=== PATIENT | male | born 1985 | race Caucasian/White ===

== ENCOUNTER → 2022-01-19 | Outpatient (CLI) | payer BC ==
--- NOTE | 2022-01-19 10:30 | US ---
EXAMINATION TYPE: US thyroid st tissue head/neck DATE OF EXAM: 01/19/2022 COMPARISON: NONE CLINICAL HISTORY: E04.0 NONTOXIC DIFFUSE GOITER. Difficulty swallowing GLAND SIZE: Right Lobe: 5.5 x 1.5 x 2.2 cm Overall Parenchyma: homogenous Left Lobe: 4.9 x 1.5 x 1.6 cm Overall Parenchyma: homogeneous Isthmus Thickness: 0.3 cm NODULES RIGHT: # of nodules measured on right: 1 1. 0.5 X 0.4 x 0.5 cm, upper lateral, solid or almost completely solid, hypoechoic nodule, which is wider than tall, with smooth margins, without echogenic foci. TR 4. Prior size: no previous LEFT: # of nodules measured on left: 1 1. 0.9 X 0.5 x 0.7 cm, mid/lower mid, mixed cystic and solid, hypoechoic nodule, which is wider talib n tall, with smooth margins, without echogenic foci. Prior size: no previous ISTHMUS: # of nodules measured in the isthmus: 0 Bilateral neck scanned, no evidence of lymphadenopathy. IMPRESSION: Moderately suspicious nodule right lobe thyroid. Consider follow-up exam in one year 2017 ACR TI-RADS LEVEL: TR-RADS 4 - Moderately Suspicious: Follow if > 1 cm, FNA if > 1.5 cm *Highest TI-RADS level nodule reported
== END | disposition home or self-care (01) ==
LOC: RADUSWWP 09:22
PROVIDERS: ATTEND Family Medicine
DX: E04.0 Nontoxic diffuse goiter (principal); R13.10 Dysphagia, unspecified
CPT/HCPCS: 76536

== ENCOUNTER → 2023-10-05 | Outpatient (CLI) | payer BC ==
--- NOTE | 2023-10-05 12:29 | FL ---
EXAMINATION TYPE: FL barium swallow DATE OF EXAM: 10/05/2023 CLINICAL HISTORY: Dysphasia TECHNIQUE: A double contrast esophagram is performed utilizing air and barium. A total of 41 second s of fluoroscopic time was utilized during procedure and 19 images obtained. Total dose area product (DAP) in uGy*m?, mGy*cm? (or similar) 5.. COMPARISON: None FINDINGS: The esophagus shows normal motility and emptying into the stomach. There was a small hiatal hernia and tertiary contractions of the esophagus mild fold thickening. There was evidence of gastro esophageal reflux. IMPRESSION: 1. Small hiatal hernia with gastroesophageal reflux. Mild fold thickening in tertiary contractions of the esophagus correlate for reflux esophagitis. Consider EGD for further evaluation.
== END | disposition home or self-care (01) ==
LOC: RADFLMAIN 11:04
PROVIDERS: ATTEND Family Medicine
DX: K21.9 Gastro-esophageal reflux disease without esophagitis (principal); K44.9 Diaphragmatic hernia without obstruction or gangrene; R13.10 Dysphagia, unspecified
CPT/HCPCS: 74220

== ENCOUNTER 2024-01-08 09:07 | Day surgery (SDC) | payer BC ==
[2024-01-03 13:09] VITALS: BMI 27.4
[2024-01-08] MEDS ORDERED: LIDOCAINE 1% (10MG/ML) FOR IV START INTRADERMA PRN (09:28)
[2024-01-08] MEDS: LACTATED RINGERS 1,000 ML IV SCH (09:43)
[2024-01-08 09:48] VITALS: RESP 16; TEMP 97.9
[2024-01-08] MEDS ORDERED: PROPOFOL 10 MG/ML 20 ML VIAL IV ONE (10:07)
[2024-01-08] MEDS ORDERED: LIDOCAINE 1% INJ 10MG/ML (20 ML MDV) ONE (10:07)
--- NOTE | 2024-01-08 10:18 | P.GSHP ---
History of Present Illness H&P Date: 01/08/24 Chief Complaint: GERD 38-year-old male here for upper endoscopy. Patient has had a 1 year history of intermittent dysphagia and reflux. Reflux symptoms improved with omeprazole however still having dysphagia at times. Patient had a upper GI 2 months ago is showing GERD, hiatal hernia, and some tertiary contractions. Past Medical History Past Medical History: GERD/Reflux Additional Past Medical History / Comment(s): reflux trouble swallowint, lower back muscle spasms History of Any Multi-Drug Resistant Organisms: None Reported Past Surgical History: No Surgical Hx Reported Past Anesthesia/Blood Transfusion Reactions: No Reported Reaction Additional Past Anesthesia/Blood Transfusion Reaction / Comment(s): no blood transfusion Smoking Status: Current every day smoker, Vaper Medications and Allergies Home Medications Medication Instructions Recorded Confirmed Type Fexofenadine HCl [Елена Allergy] 180 mg PO DAILY 01/03/24 01/08/24 History Omeprazole 40 mg PO DAILY 01/03/24 01/08/24 History tiZANidine HCL [Zanaflex] 6 mg PO DAILY 01/03/24 01/08/24 History Allergies Allergy/AdvReac Type Severity Reaction Status Date / Time No Known Allergies Allergy Verified 01/08/24 09:33 Surgical - Exam Vital Signs Temp Pulse Resp BP Pulse Ox 97.9 F 66 16 120/76 99 01/08/24 09:34 01/08/24 09:34 01/08/24 09:34 01/08/24 09:34 01/08/24 09:34 Physical exam: General: Well-developed, well-nourished HEENT: Normocephalic, sclerae nonicteric Abdomen: Nontender, nondistended Extremities: No edema Neuro: Alert and oriented Assessment and Plan (1) GERD (gastroesophageal reflux disease) Narrative/Plan: Will proceed with upper endoscopy Current Visit: Yes Status: Acute Code(s): K21.9 - GASTRO-ESOPHAGEAL REFLUX DISEASE WITHOUT ESOPHAGITIS SNOMED Code(s): 731841622
--- NOTE | 2024-01-08 10:19 | P.PCN ---
Date of Procedure: 01/08/24 Procedure(s) Performed: Preoperative Dx: GERD, dysphagia Postoperative Dx: Gastritis, small hiatal hernia, mild distal esophagitis Procedure: EGD with Bx Anesthesia: Sedation Endoscopist: Dr. Parsons Specimens: Antrum, distal esophagus Endoscopic Procedure: The patient was on the endoscopy table in the left decubitus position. The Olympus gastroscope was inserted into the oropharynx and passed under direct visualization to the region of the third portion of the duodenum. From that point the scope was slowly withdrawn inspecting all surfaces carefully. There were no neoplastic inflammatory or polypoid lesions throughout the duodenum. The pylorus was widely patent. The stomach was carefully inspected. There was mild gastritis present. A biopsy of the antrum took place to rule out H. pylori. Retroflexion revealed a normal hiatus. As the scope was withdrawn into the esophagus a small 1 cm hiatal hernia was noted. At the GE junction there was very mild inflammatory changes. Biopsies were taken. There was a single small linear erosion measuring less than 1 cm. The remainder the esophagus appeared normal. There was no narrowing to explain the patient's dysphagia. The patient was then taken to the recovery room in stable condition per anesthesia guidelines. Recommendations: Await biopsy results. Continue antiacids.
[2024-01-08 10:47] VITALS: BP 103/68; PULSE 63
== END 2024-01-08 10:54 | disposition home or self-care (01) ==
LOC: ORWHC2ENDO 09:07
PROVIDERS: ATTEND Surgery
DX: K29.50 Unspecified chronic gastritis without bleeding (principal); K21.00 Gastro-esophageal reflux disease with esophagitis, without bleeding; K44.9 Diaphragmatic hernia without obstruction or gangrene; F41.9 Anxiety disorder, unspecified; F17.290 Nicotine dependence, other tobacco product, uncomplicated; Z79.899 Other long term (current) drug therapy
CPT/HCPCS: 88305; 43239; J2001; J2704

== ENCOUNTER → 2024-05-16 | Outpatient (CLI) | payer BC ==
--- NOTE | 2024-05-16 16:55 | US ---
EXAMINATION TYPE: US thyroid st tissue head/neck DATE OF EXAM: 05/16/2024 COMPARISON: US 01/19/2022 CLINICAL INDICATION: Male, 39 years old with history of E04.2 NONTOXIC MULTH GOLTER; Goiter TECHNIQUE: Grayscale and color Doppler imaging of the thyroid gland. FINDINGS: GLAND SIZE: Right Lobe: 5.7 x 1.9 x 1.7 cm Overall Parenchyma: homogeneous Left Lobe: 5.1 x 1.8 x 1.5 cm Overall Parenchyma: homogeneous Isthmus Thickness: 0.26 cm NODULES RIGHT: # of nodules measured on right: 1 1. 0.6 X 0.4 x 0.4 cm, upper lateral, solid or almost completely solid, hypoechoic nodule, which is as wide as it is tall, with smooth margins, without echogenic foci. Prior size: 0.5 x 0.5 x 0.4 cm LEFT: # of nodules measured on left: 1 1. 1.0 X 0.9 x 0.6 cm, lower mid, solid or almost completely solid, hypoechoic nodule, which is wid er than tall, with smooth margins, without echogenic foci. Tear for Prior size: 0.9 x 0.7 x 0.5 cm ISTHMUS: # of nodules measured in the isthmus: 0 Bilateral neck scanned, no evidence of lymphadenopathy. IMPRESSION: Moderately suspicious nodule left lobe thyroid. Follow-up in 1 year is recommended. 2017 ACR TI-RADS LEVEL: TR-RADS 4 - Moderately Suspicious: Follow if > 1 cm, FNA if > 1.5 cm *Highest TI-RADS level nodule reported [email or web address] [facility], Workstation: [email or web address], 05/16/2024 4:53 PM
== END | disposition home or self-care (01) ==
LOC: RADUSWWP 16:29
PROVIDERS: ATTEND Family Medicine
DX: E04.2 Nontoxic multinodular goiter (principal)
CPT/HCPCS: 76536

== ENCOUNTER 2024-08-15 01:53 | Observation (INO) | payer BC ==
[2024-08-15] MEDS: NITROGLYCERIN SL TABS 0.4 MG TAB SUBLINGUAL STA ×2 (02:26→03:44)
[2024-08-15] MEDS: SODIUM CHLORIDE 0.9% 1,000 ML IV STA (02:29)
--- NOTE | 2024-08-15 02:29 | ED ---
General Adult HPI - General Chief complaint: Chest Pain Stated complaint: Chest Tightness, Dizziness Source: patient Mode of arrival: EMS Limitations: no limitations - History of Present Illness Initial comments: Patient is a pleasant 39-year-old male with no significant medical history presenting today for left-sided chest discomfort. Patient was lying in bed this evening when he began to feel a tightness on the left side of his chest. He became worried due to family history of cardiac disease so called paramedics for further evaluation. Pain did radiate to the left shoulder blade and has subsequently spontaneously subsided. Did not radiate to the jaw, back or down his arm. He denies associated diaphoresis, shortness of breath, cough, hemoptysis, fevers, chills, recent illness, nausea, vomiting, dizziness, palpitations, numbness, weakness, slurred speech, abdominal pain. 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 Pt's father had a heart attack around the age of 65. No known hx sudden cardiac in family. Pt vapes but is a nonsmoker. No recent travel, surgery or hospitalizations, no hx CA, not on hormone replacement therapy, no LE swelling. Patient states that he does drink quite a bit of caffeine and stating that he drinks a 20 ounce red bull as well as another 3 red bowls throughout the day typically. - Related Data Previous Rx's Medication Instructions Recorded Aspirin 81 mg PO DAILY 30 Days #30 tab 08/16/24 Atorvastatin [Lipitor] 40 mg PO DAILY 30 Days #30 tablet 08/16/24 Dapagliflozin Propanediol [Farxiga] 10 mg PO DAILY 30 Days #30 tablet 08/16/24 Metoprolol Succinate (ER) [Toprol 25 mg PO DAILY 30 Days #30 tab 08/16/24 XL] Sacubitril/Valsartan [Entresto 24 1 each PO BID 30 Days #60 tablet 08/16/24 mg-26 mg Tablet] Allergies Allergy/AdvReac Type Severity Reaction Status Date / Time No Known Allergies Allergy Verified 08/15/24 08:26 Review of Systems ROS Statement: Those systems with pertinent positive or pertinent negative responses have been documented in the HPI. ROS Other: All systems not noted in ROS Statement are negative. Past Medical History Past Medical History: GERD/Reflux Additional Past Medical History / Comment(s): reflux trouble swallowint, lower back muscle spasms History of Any Multi-Drug Resistant Organisms: None Reported Past Surgical History: No Surgical Hx Reported Past Anesthesia/Blood Transfusion Reactions: No Reported Reaction Additional Past Anesthesia/Blood Transfusion Reaction / Comment(s): no blood transfusion Past Psychological History: Anxiety Smoking Status: Current every day smoker, Vaper Past Alcohol Use History: Occasional Past Drug Use History: Marijuana General Exam - General Exam Comments Initial Comments: PE: CONSTITUTIONAL: No apparent distress, well appearing SKIN: Warm, dry, no jaundice, hives or petechiae EYES: Pupils are equally round, extraocular movements intact without nystagmus, clear conjunctiva, non-icteric sclera HENT: Normocephalic, atraumatic, moist mucus membranes, oropharynx clear without exudates NECK: , Full range of motion, normal appearance PULMONARY: Clear to auscultation without wheezes, rhonchi, or rales, normal excursion, no accessory muscle use and no stridor CARDIOVASCULAR: Regular rate, rhythm, normal S1 and S2. No appreciated murmurs, rubs or gallops. Strong radial pulses with intact distal perfusion. No lower extremity edema, no reproducible chest wall tenderness to palpation GASTROINTESTINAL: Soft, active bowel sounds throughout, non-tender, non- distended, no palpable masses, no rebound or guarding. No hepatosplenomegaly GENITOURINARY: MUSCULOSKELETAL: Extremities have no gross deformity, no edema, redness, or swelling. No calf swelling NEUROLOGIC:_a/o x 3, GCS 15, normal mentation and speech. Moves all extremities x 4 without motor or sensory deficit PSYCHIATRIC:_normal mood and affect, thought process is clear and linear Limitations: no limitations Course Vital Signs 08/15/24 08/15/24 08/15/24 01:56 02:21 03:40 Temperature 98.6 F 98.5 F 97.9 F Pulse Rate 71 80 67 Respiratory 18 14 14 Rate Blood Pressure 142/93 138/88 125/83 O2 Sat by Pulse 98 95 98 Oximetry 08/15/24 08/15/24 08/15/24 06:59 09:00 09:48 Temperature 98.3 F Pulse Rate 64 75 66 Respiratory 14 16 16 Rate Blood Pressure 117/84 130/68 116/72 O2 Sat by Pulse 96 98 98 Oximetry 08/15/24 08/15/24 08/15/24 11:00 11:47 11:58 Temperature Pulse Rate 75 74 65 Respiratory 16 20 16 Rate Blood Pressure 110/60 116/74 136/60 O2 Sat by Pulse 98 98 98 Oximetry EKG Findings - EKG Comments: EKG Findings:: Sinus rhythm, rate 73 bpm MN interval 151 ms QRS duration 105 ms QT/QTc 347/373 ms, normal axis, questioable [address] elevation in lead V2, otherwise no ST elevations or depressions, T wave inversion lead aVR, prominent T waves in leads II, III and aVF no prior EKG for comparison Medical Decision Making - Medical Decision Making Was pt. sent in by a medical professional or institution (, PA, FIBER OPTIC TECHNICIAN, urgent care, hospital, or fpc...) When possible be specific @ -No Did you speak to anyone other than the patient for history (EMS, parent, family, police, friend...)? What history was obtained from this source @ -No Did you review nursing and triage notes (agree or disagree)? Why? @ -I reviewed and agree with nursing and triage notes Were old charts reviewed (outside hosp., previous admission, EMS record, old EKG, old radiological studies, urgent care reports/EKG's, fpc records)? Report findings @ -Medical records reviewed Differential Diagnosis (chest pain, altered mental status, abdominal pain women, abdominal pain men, vaginal bleeding, weakness, fever, dyspnea, syncope, headache, dizziness, GI bleed, back pain, seizure, CVA, palpatations, mental health, musculoskeletal)? @ -Differential Chest Pain: Stable Angina, Unstable Angina, STEMI, NSTEMI pericarditis, pleurisy, chostochondirits, Pneumothorax, Musculoskeletal, Esophageal Spasm GERD, Cholecystitis, Pancreatitis, Zoster, this is not meant to be an all-inclusive list. EKG interpreted by me (3pts min.). @ -As above X-rays interpreted by me (1pt min.). @ -None done CT interpreted by me (1pt min.). @ -None done U/S interpreted by me (1pt. min.). @ -None done What testing was considered but not performed or refused? (CT, X-rays, U/S, labs)? Why? Consider D-dimer however Wells score is 0, PERC rule negative, therefor PE can be ruled out without further investigation. What meds were considered but not given or refused? Why? @ -None Did you discuss the management of the patient with other professionals (professionals i.e. , PA, FIBER OPTIC TECHNICIAN, lab, RT, psych nurse, social sciences instructor, police clerk, teacher, soil science technical officer, case planner)? Give summary @ -No Was smoking cessation discussed for >3mins.? @ -No Was critical care preformed (if so, how long)? @ -No Were there social determinants of health that impacted care today? How? ( Homelessness, low income, unemployed, alcoholism, drug addiction, transportation, low edu. Level, literacy, decrease access to med. care, longterm, rehab)? @ -No Was there de-escalation of care discussed even if they declined (Discuss DNR or withdrawal of care, Hospice)? @ -No What co-morbidities impacted this encounter? (DM, HTN, Smoking, COPD, CAD, Cancer, CVA, ARF, Chemo, Hep., AIDS, mental health diagnosis, sleep apnea, morbid obesity)? @Nicotine dependance Was patient admitted / discharged? Hospital course, mention meds given and route, prescriptions, significant lab abnormalities, going to OR and other pertinent info. @ Admission- Patient is a pleasant 39-year-old gentleman with no significant medical history presenting today for left-sided chest tightness that began spontaneously at home this evening. Discomfort improving spontaneously. Patient seen and assessed on arrival. Complete history and physical exam performed. Plan for chest pain workup, EKG, chest x-ray aspirin will trial sublingual nitroglycerin, Tylenol was ordered out of anticipated headache status with sublingual nitro. Patient agreeable w/ POC Labs and imaging reviewed. Grossly within normal limits. Abnormal values not concerning for acute pathology related to presenting complaint. On reassessment patient states that his pain had improved however he had gotten up to use the bathroom and pain returned with ambulation. Patient was given additional sublingual nitroglycerin and Toradol with improvement of pain again. I discussed with patient his EKG, and improvement of pain with SL nitro, which is somewhat concerning for chest pain related to ACS. At this point he has a relatively low HEART score (3), however pt is concerned that his pain is cardiac in nature and feels more comfortable with admission for obs, cardiac consultation. I feel this is reasonable given pt's family hx, chest pain wors ening with ambulation and improving with SL nitro and questionable ST elevation in lead V2. Case discussed with Dr. Walker who kindly accepts patient for admission. Undiagnosed new problem with uncertain prognosis? @ -No Drug Therapy requiring intensive monitoring for toxicity (Heparin, Nitro, Insul in, Cardizem)? @ -No Were any procedures done? @ -No Diagnosis/symptom? @Chest pain Acute, or Chronic, or Acute on Chronic? acute Uncomplicated (without systemic symptoms) or Complicated (systemic symptoms)? complicated Side effects of treatment? @ -No Exacerbation, Progression, or Severe Exacerbation? @ -No Poses a threat to life or bodily function? How? (Chest pain, USA, MD, pneumonia, PE, COPD, DKA, ARF, appy, cholecystitis, CVA, Diverticulitis, Homicidal, Suicidal, threat to staff... and all critical care pts) @ Yes if 2/2 cardiac etiology, and left unaddressed could ultimately be life thr eatening - Lab Data Result diagrams: 08/16/24 03:56 08/16/24 03:56 Lab Results 08/15/24 08/15/24 08/15/24 Range/Units 01:59 01:59 01:59 WBC 11.2 H (3.8-10.6) k/uL RBC 4.85 (4.30-5.90) m/uL Hgb 15.2 (13.0-17.5) gm/dL Hct 45.7 (39.0-53.0) % MCV 94.1 (80.0-100.0) fL MCH 31.4 (25.0-35.0) pg MCHC 33.3 (31.0-37.0) g/dL RDW 12.4 (11.5-15.5) % Plt Count 303 (150-450) k/uL MPV 7.2 Neutrophils % 58 % Lymphocytes % 31 % Monocytes % 6 % Eosinophils % 3 % Basophils % 0 % Neutrophils # 6.5 (1.3-7.7) k/uL Lymphocytes # 3.4 (1.0-4.8) k/uL Monocytes # 0.6 (0-1.0) k/uL Eosinophils # 0.3 (0-0.7) k/uL Basophils # 0.1 (0-0.2) k/uL PT 11.0 (10.0-12.5) sec INR 1.0 (<1.2) APTT 23.8 (22.0-30.0) sec Sodium 139 (137-145) mmol/L Potassium 3.8 (3.5-5.1) mmol/L Chloride 103 (98-107) mmol/L Carbon Dioxide 25 (22-30) mmol/L Anion Gap 11 mmol/L BUN 10 (9-20) mg/dL Creatinine 0.82 (0.66-1.25) mg/dL Est GFR (CKD-EPI)AfAm >90 (>60 ml/min/1.73 sqM) Est GFR (CKD-EPI)NonAf >90 (>60 ml/min/1.73 sqM) Glucose 110 H (74-99) mg/dL Calcium 9.4 (8.4-10.2) mg/dL Magnesium 2.2 (1.6-2.3) mg/dL Total Bilirubin 0.6 (0.2-1.3) mg/dL AST 27 (17-59) U/L ALT 18 (4-49) U/L Alkaline Phosphatase 58 (38-126) U/L Troponin I (0.000-0.034) ng/mL NT-Pro-B Natriuret Pep <20 pg/mL Total Protein 7.7 (6.3-8.2) g/dL Albumin 4.8 (3.5-5.0) g/dL Triglycerides (0.00-149.00) mg/dL Cholesterol (0.00-200.00) mg/dL LDL Cholesterol, Calc (0.0-131.0) mg/dL VLDL Cholesterol, Calc (5.00-40.00) mg/dL HDL Cholesterol (40.00-60.00) mg/dL Cholesterol/HDL Ratio Ratio 08/15/24 08/15/24 08/15/24 Range/Units 01:59 01:59 05:17 WBC (3.8-10.6) k/uL RBC (4.30-5.90) m/uL Hgb (13.0-17.5) gm/dL Hct (39.0-53.0) % MCV (80.0-100.0) fL MCH (25.0-35.0) pg MCHC (31.0-37.0) g/dL RDW (11.5-15.5) % Plt Count (150-450) k/uL MPV Neutrophils % % Lymphocytes % % Monocytes % % Eosinophils % % Basophils % % Neutrophils # (1.3-7.7) k/uL Lymphocytes # (1.0-4.8) k/uL Monocytes # (0-1.0) k/uL Eosinophils # (0-0.7) k/uL Basophils # (0-0.2) k/uL PT (10.0-12.5) sec INR (<1.2) APTT (22.0-30.0) sec Sodium (137-145) mmol/L Potassium (3.5-5.1) mmol/L Chloride (98-107) mmol/L Carbon Dioxide (22-30) mmol/L Anion Gap mmol/L BUN (9-20) mg/dL Creatinine (0.66-1.25) mg/dL Est GFR (CKD-EPI)AfAm (>60 ml/min/1.73 sqM) Est GFR (CKD-EPI)NonAf (>60 ml/min/1.73 sqM) Glucose (74-99) mg/dL Calcium (8.4-10.2) mg/dL Magnesium (1.6-2.3) mg/dL Total Bilirubin (0.2-1.3) mg/dL AST (17-59) U/L ALT (4-49) U/L Alkaline Phosphatase (38-126) U/L Troponin I <0.012 <0.012 (0.000-0.034) ng/mL NT-Pro-B Natriuret Pep pg/mL Total Protein (6.3-8.2) g/dL Albumin (3.5-5.0) g/dL Triglycerides 335.00 H (0.00-149.00) mg/dL Cholesterol 238.00 H (0.00-200.00) mg/dL LDL Cholesterol, Calc 138.1 H (0.0-131.0) mg/dL VLDL Cholesterol, Calc 67.00 H (5.00-40.00) mg/dL HDL Cholesterol 32.90 L (40.00-60.00) mg/dL Cholesterol/HDL Ratio 7.23 Ratio Disposition Clinical Impression: Chest pain Disposition: ADMITTED IP TO THIS [facility] Condition: Stable
[2024-08-15] MEDS: ASPIRIN 81 MG PO STA (02:30)
[2024-08-15] MEDS: ACETAMINOPHEN TAB 500 MG TAB PO STA (02:31)
[2024-08-15 02:43] LABS: Basophils # (A) 0.1 k/uL (0-0.2); Basophils % (A) 0 %; Eosinophils # (A) 0.3 k/uL (0-0.7); Eosinophils % (A) 3 %; HCT 45.7 % (39.0-53.0); HGB 15.2 gm/dL (13.0-17.5); Lymphocytes # (A) 3.4 k/uL (1.0-4.8); Lymphocytes % (A) 31 %; MCH 31.4 pg (25.0-35.0); MCHC 33.3 g/dL (31.0-37.0); MCV 94.1 fL (80.0-100.0); Mean Platelet Volume 7.2; Monocytes # (A) 0.6 k/uL (0-1.0); Monocytes % (A) 6 %; Neutrophils # (A) 6.5 k/uL (1.3-7.7); Neutrophils % (A) 58 %; Platelet Count 303 k/uL (150-450); RBC 4.85 m/uL (4.30-5.90); RDW 12.4 % (11.5-15.5); WBC 11.2 k/uL (3.8-10.6)
[2024-08-15 02:44] LABS: ALT 18 U/L (4-49); AST 27 U/L (17-59); African American GFR (CKD) >90 (>60 ml/min/1.73 sqM); Albumin 4.8 g/dL (3.5-5.0); Alkaline Phosphatase 58 U/L (38-126); Anion Gap 11 mmol/L; Blood Urea Nitrogen 10 mg/dL (9-20); Calcium 9.4 mg/dL (8.4-10.2); Carbon Dioxide 25 mmol/L (22-30); Chloride 103 mmol/L (98-107); Glucose 110 mg/dL (74-99); Magnesium 2.2 mg/dL (1.6-2.3); Non-African American GFR(CKD) >90 (>60 ml/min/1.73 sqM); Potassium 3.8 mmol/L (3.5-5.1); Sodium 139 mmol/L (137-145); Total Bilirubin 0.6 mg/dL (0.2-1.3); Total Protein 7.7 g/dL (6.3-8.2)
[2024-08-15 02:50] LABS: Partial Thromboplastin Time 23.8 sec (22.0-30.0)
[2024-08-15 02:52] LABS: NT-Pro-B-Type Natriuretic Pept <20 pg/mL
[2024-08-15] MEDS: KETOROLAC 15 MG/ML 1 ML VIAL IVP STA (03:45)
[2024-08-15] MEDS ORDERED: NALOXONE 0.4 MG/ML 1 ML VIAL IV PRN (06:23)
[2024-08-15] MEDS ORDERED: traMADol 50 MG TAB PO PRN (06:23)
[2024-08-15] MEDS ORDERED: ONDANSETRON 4 MG/2 ML VIAL IVP PRN (06:23)
[2024-08-15] MEDS ORDERED: IBUPROFEN 400 MG TAB PO PRN (06:23)
[2024-08-15] MEDS ORDERED: CALCIUM CARBONATE 500 MG CHEWABLE PO PRN (06:23)
[2024-08-15] MEDS ORDERED: MAG HYDROX/AL HYDROX/SIMETH 30 ML CUP PO PRN (06:23)
[2024-08-15] MEDS ORDERED: ACETAMINOPHEN TAB 325 MG TAB PO PRN (06:23)
--- NOTE | 2024-08-15 07:37 | XR ---
EXAMINATION TYPE: XR chest 2V DATE OF EXAM: 08/15/2024 2:42 AM COMPARISON: 02/09/2017 CLINICAL INDICATION: Male, 39 years old with history of Chest Pain, TECHNIQUE: XR chest 2V view(s) obtained. FINDINGS: The heart size is normal. The pulmonary vasculature is normal. The lungs are clear. IMPRESSION: 1. No acute pulmonary process. [facility], , 08/15/2024 7:35 AM
[2024-08-15] MEDS: FAMOTIDINE 20 MG TAB PO SCH (10:00)
--- NOTE | 2024-08-15 10:03 | P.HPIM ---
History of Present Illness H&P Date: 08/15/24 Chief Complaint: Chest pain Patient is a 39-year-old male with GERD presented earlier today to the ED for left-sided chest tightness that started yesterday evening. Patient was seen at bedside. He reported that he was laying down watching TV last night when he started feeling a chest tightness sensation. He has never had anything like this before. He reported a substernal, nonradiating, intermittent chest pain with intensity of 5 out of 10. Each episode lasted few minutes. When patient presented to the ED he was given nitroglycerin which did help relieve his pain. Patient does report a family history significant for sudden cardiac , atrial fibrillation, and premature ventricular contractions. Patient also endorsed shakiness and dizziness. Denies syncope, loss of consciousness, passing out. Patient also denies fever, chills, shortness of breath, nausea, vomiting, belly pain, diarrhea/constipation, tingling/numbness in upper and lower extremity. ED documentation reviewed. In the ED patient was treated with aspirin 324 mg x 1, nitroglycerin 0.4 mg x 2, a bolus of normal saline, Tylenol 1000 mg x 1, Toradol 15 mg IV x 1 Vitals on admission temperature 98.3, pulse rate 64, respiratory rate 14, BP 117/84, O2 sat 96% on room air EKG independently interpreted as sinus rhythm, with ventricular rate of 73 bpm, QTc interval 373 ms CXR shows no acute pulmonary process. Labs on admission show WBC 11.3, hemoglobin 15.2, hematocrit 45.7, platelets 303, PT 11, PTT 23.8, INR 1.0, sodium 139, potassium 3.8, chloride 103, carbon dioxide 25, BUN 10, creatinine 0.82, glucose 110, troponin less than 0.012 x 2, BNP less than 20 Review of systems: Pertinent positives and negatives as discussed in HPI, a complete review of systems was performed and all other systems are negative. PMH: GERD, lower back muscle spasms PSH: No surgical history FMH: Family history of cardiac disease. Patient's father had an ND around age of 65. 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 Neuro: Alert, Gross neurological examination did not reveal any focal deficits. Cranial nerves II to XII grossly intact. Bilateral upper and lower extremity muscle strength intact and sensation intact. Psych: well appearing, appropriate affect Assessment/Plan: Patient is a 39-year-old male with GERD presented earlier today to the ED for left-sided chest tightness. Patient will be admitted to internal medicine service. Active: #. Chest pain with atypical features, rule out ACS EKG interpreted as sinus rhythm with ventricular rate of 73 bpm, QTc interval 373 ms Troponin less than 0.012 x 2 Trend troponin BNP less than 20 Cardiology consulted by ED Order echocardiogram and stress test Continue cardiac monitoring Continue pain and nausea control as needed Patient will undergo heart cath today #. Leukocytosis, likely secondary to stress WBC 11.2 Monitor morning CBC #. Hyperglycemia, with no documented history of diabetes mellitus Glucose 110 Obtain hemoglobin A1c F: No restrictions E: Replete as needed N: Heart healthy diet A: EMS DVT prophylaxis: Lovenox 40 mg subcu daily The patient is admitted with an anticipated less than 2 midnight stay for evaluation of chest pain CODE STATUS: Full code Discussed with: Patient Anticipated discharge place: Home attestation: I have personally seen and examined the patient with Resident, reviewed the documentation and participated and agree with the assessment and plan as written. Jonathan Mccall MD Past Medical History Past Medical History: GERD/Reflux Additional Past Medical History / Comment(s): reflux trouble swallowint, lower back muscle spasms History of Any Multi-Drug Resistant Organisms: None Reported Past Surgical History: No Surgical Hx Reported Past Anesthesia/Blood Transfusion Reactions: No Reported Reaction Additional Past Anesthesia/Blood Transfusion Reaction / Comment(s): no blood transfusion Past Psychological History: Anxiety Smoking Status: Current every day smoker, Vaper Past Alcohol Use History: Occasional Past Drug Use History: Marijuana Medications and Allergies Home Medications Medication Instructions Recorded Confirmed Type Aspirin 81 mg PO DAILY 30 Days #30 tab 08/16/24 Rx Atorvastatin [Lipitor] 40 mg PO DAILY 30 Days #30 tablet 08/16/24 Rx Dapagliflozin Propanediol [Farxiga] 10 mg PO DAILY 30 Days #30 tablet 08/16/24 Rx Metoprolol Succinate (ER) [Toprol 25 mg PO DAILY 30 Days #30 tab 08/16/24 Rx XL] Sacubitril/Valsartan [Entresto 24 1 each PO BID 30 Days #60 tablet 08/16/24 Rx mg-26 mg Tablet] Allergies Allergy/AdvReac Type Severity Reaction Status Date / Time No Known Allergies Allergy Verified 08/15/24 08:26 Physical Exam Vitals: Vital Signs Temp Pulse Resp BP Pulse Ox 08/15/24 06:59 98.3 F 64 14 117/84 96 08/15/24 03:40 97.9 F 67 14 125/83 98 08/15/24 02:21 98.5 F 80 14 138/88 95 08/15/24 01:56 98.6 F 71 18 142/93 98 Intake and Output 08/14/24 08/15/24 08/15/24 22:59 06:59 14:59 Other: Weight 80.286 kg Results CBC & Chem 7: 08/16/24 03:56 08/16/24 03:56 Labs: Abnormal Lab Results - Last 24 Hours (Table) 08/15/24 08/15/24 Range/Units 01:59 01:59 WBC 11.2 H (3.8-10.6) k/uL Glucose 110 H (74-99) mg/dL
--- NOTE | 2024-08-15 11:17 | CA ---
Transthoracic Echo Report Name: Rickie Parrish Age: 39 Gender: M : 1985 Exam Date: 08/15/2024 08:57 Exam Location: [facility] Ht (in): 68 Wt (lb): 177 Ordering Physician: Marbella Valdez MD Attending/Referring Phys: Vice Chancellor Debbie Villegas RDCS Procedure CPT: Indications: Chest Pain Cardiac Hx: Technical Quality: Fair Contrast 1: Total Dose (mL): Contrast 2: Total Dose (mL): MEASUREMENTS (Male / Female) Normal Values 2D ECHO LV Diastolic Diameter PLAX 5.0 cm 4.2 - 5.9 / 3.9 - 5.3 cm LV Systolic Diameter PLAX 3.7 cm IVS Diastolic Thickness 1.1 cm 0.6 - 1.0 / 0.6 - 0.9 cm LVPW Diastolic Thickness 1.3 cm 0.6 - 1.0 / 0.6 - 0.9 cm LV Relative Wall Thickness 0.5 RV Internal Dim ED PLAX 2.4 cm LA Systolic Diameter LX 3.0 cm 3.0 - 4.0 / 2.7 - 3.8 cm LV Diastolic Volume MOD BP 102.6 cm??? 67 - 155 / 56 - 104 cm??? LV Systolic Volume MOD BP 48.9 cm??? 22 - 58 / 19 - 49 cm??? LV Ejection Fraction MOD BP 52.3 % >= 55 % LV Cardiac Index MOD BP 2034.5 cm???/min???m??? LV Diastolic Volume MOD 4C 101.1 cm??? LV Systolic Volume MOD 4C 50.1 cm??? LV Ejection Fraction MOD 4C 50.5 % LV Cardiac Index MOD 4C 1937.3 cm???/min???m??? LV Diastolic Length 4C 7.4 cm LV Systolic Length 4C 6.6 cm LV Diastolic Volume MOD 2C 96.7 cm??? LV Systolic Volume MOD 2C 41.0 cm??? LV Ejection Fraction MOD 2C 57.6 % LV Cardiac Index MOD 2C 2111.3 cm???/min???m??? LV Diastolic Length 2C 6.8 cm LV Systolic Length 2C 5.6 cm LA Volume 39.6 cm??? 18 - 58 / 22 - 52 cm??? LA Volume Index 20.0 cm???/m??? 16 - 28 cm???/m??? M-MODE Aortic Root Diameter MM 3.3 cm LA Systolic Diameter MM 3.0 cm LA Ao Ratio MM 0.9 AV Cusp Separation MM 2.4 cm DOPPLER MV Area PHT 3.5 cm??? Mitral E Point Velocity 81.5 cm/s Mitral A Point Velocity 69.1 cm/s Mitral E to A Ratio 1.2 MV Deceleration Time 216.0 ms TR Peak Velocity 220.1 cm/s TR Peak Gradient 19.4 mmHg Right Ventricular Systolic Press 24.0 mmHg FINDINGS Left Ventricle Left ventricular ejection fraction is estimated at 40-45%. Mildly increased septal wall thickness. Mildly decreased left ventricular ejection fraction. Mildly reduced global left ventricular systolic function. Left ventricular cavity size normal. Right Ventricle Normal right ventricular size and function. Right ventricular systolic pressure within normal limits. Right Atrium Normal right atrial size. Left Atrium Normal left atrial size. Mitral Valve Structurally normal mitral valve. Mild to moderate mitral regurgitation. No mitral stenosis. Aortic Valve Trileaflet aortic valve. No aortic valve stenosis or regurgitation. Tricuspid Valve Structurally normal tricuspid valve. No tricuspid stenosis. Mild tricuspid regurgitation. Pulmonic Valve Structurally normal pulmonic valve. No pulmonic stenosis. Trace pulmonic regurgitation. Pericardium No pericardial or pleural effusion. Aorta Normal size aortic root and proximal ascending aorta. CONCLUSIONS Impaired LV function with EF between 40 to 45%. Mild LVH was noted. Mild to moderate mitral regurgitation with central jet Normal pulmonary artery systolic pressure No evidence of pericardial effusion Previewed by: Dr. Daniel Medeiros MD (Electronically Signed) Final Date: 15 August 2024 11:16
[2024-08-15] MEDS ORDERED: ALPRAZolam 0.5 MG TAB PO PRN (11:27)
[2024-08-15] MEDS ORDERED: ASPIRIN 325 MG TAB PO STA (11:27)
[2024-08-15] MEDS ORDERED: ALPRAZolam 0.25 MG TAB PO PRN (11:27)
[2024-08-15] MEDS ORDERED: NITROGLYCERIN SL TABS 0.4 MG TAB SUBLINGUAL PRN (11:27)
[2024-08-15] MEDS: SODIUM CHLORIDE 0.9% 1,000 ML in EMPTY BAG 1 BAG IV SCH (11:44)
[2024-08-15] MEDS: ATORVASTATIN 80 MG TAB PO STA (11:44)
[2024-08-15] MEDS: HEPARIN SODIUM,PORCINE (1 ML) 2,500 UNIT in SODIUM CHLORIDE 0.9% 250 ML IRRIGATION PRN (12:01)
[2024-08-15] MEDS: HEPARIN SODIUM,PORCINE 10,000 UNIT in SODIUM CHLORIDE 0.9% 1,000 ML IRRIGATION PRN (12:01)
[2024-08-15] MEDS: LIDOCAINE 1% INJ 10MG/ML (20 ML MDV) SQ ONE (12:35)
[2024-08-15] MEDS: MIDAZOLAM 2 MG/2 ML VIAL IVP ONE (12:36)
[2024-08-15] MEDS: VERAPAMIL SYRINGE (5 MG/10 ML) INTRAARTER ONE (12:36)
[2024-08-15] MEDS: HEPARIN SODIUM 1,000 UN/ML (10ML VL) IVP ONE (12:37)
[2024-08-15] MEDS: HYDROmorphone 0.5 MG/0.5 ML SYRINGE IVP ONE (12:37)
[2024-08-15] MEDS: IOPAMIDOL-370 100ML BTL INJ ONE (12:42)
[2024-08-15] MEDS ORDERED: RX INFO: IV CONTRAST WAS GIVEN 1 EACH MISC MISCELLANE PRN (12:55)
--- NOTE | 2024-08-15 12:57 | P.PCN ---
Date of Procedure: 08/15/24 Operative Findings: CARDIAC CATHETERIZATION PERFORMING PHYSICIAN: Daniel Medeiros MD, RPVI PROCEDURE PERFORMED: 1. Selective right and left coronary angiogram 2. Left heart catheterization 3. Ultrasound-guided access of the right radial artery INDICATION: Cardiomyopathy COMPLICATION: None APPROACH: Right radial artery LEVEL OF SEDATION: Moderate with a sedation length of 10 minutes PROCEDURE DESCRIPTION: After obtaining an informed consent, the patient was brought to cardiac shipyard laborer. Local anesthesia was performed using lidocaine subcutaneously. The right radial artery was cannulated using Seldinger technique, the guidewire passed easily, following that we advanced a 5-Mauritanian sheath dilator assembly, the wire and dilator were removed and sheath was flushed. Following that, 2 mg of verapamil along with 5000 unit heparin were given. Selective right and left coronary angiogram using a 6-Mauritanian JR4 and JL 3.5 catheters. Following that we did left heart catheterization using 6-Mauritanian pigtail catheter. The procedure was completed there was no complication. SELECTIVE CORONARY ANGIOGRAM: The right coronary artery: Large-caliber vessel and a dominant vessel appears to be angiographically normal and distally bifurcates into PDA and PLV branches both appear to be normal Left main: Is angiographically normal The left circumflex: Large caliber vessel nondominant vessel angiographically normal gives rise into first and second OM both appear to be normal The left anterior descending artery: Large-caliber vessel appears to be normal as well and gives rise into multiple diagonal branches HEMODYNAMICS: The LVEDP was 6 mmHg with no gradient was identified across aortic valve CONCLUSION: 1. Normal coronary angiogram 2. Normal left-sided filling pressure POSTPROCEDURE MANAGEMENT: Medical treatment and maximize medical treatment for cardiomyopathy
--- NOTE | 2024-08-15 14:22 | P.CRDCN ---
History of Present Illness History of present illness: HISTORY OF PRESENT ILLNESS: This is a 39-year-old male with a past medical history significant for nicotine dependence in the form of vaping. 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 We have been asked to see the patient in consultation for chest pain. Patient examined at the bedside. Patient states yesterday he was watching TV when he began to get chest pain. He does report having some radiation of the pain into his arm at that time. He reports feeling dizzy and lightheaded. 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 He did receive nitro twice in the emergency room. He states that his pain improved after the first nitro but then he got up to walk to the bathroom and his pain returned. He received a second nitro and then his pain resolved. He denied having any further episodes of chest pain or pressure. He denies any known history of CAD. He denies a history of diabetes, hypertension, or hyperlipidemia. Patient does report that he vapes daily. He reports a family history of CAD in both his mother and his father. DIAGNOSTICS: - EKG reveals sinus mechanism with no signs of acute ischemia - Chest xray negative for acute process - Laboratory data: WBC 11.2. Hemoglobin 15.2. Platelet count 303. Sodium 139. Potassium 3.8. BUN 10. Creatinine 0.82. Magnesium 2.2. Troponin negative x 2. proBNP less than 20. - Current home cardiac medications include none -Echocardiogram obtained revealing ejection fraction 40 to 45%, mild to moderate MR, mild TR, mild LVH, no evidence of pericardial effusion REVIEW OF SYSTEMS: At the time of my exam: CONSTITUTIONAL: Denies fever or chills. HEENT: Denies blurred vision, vision changes, or eye pain. Denies hemoptysis CARDIOVASCULAR: Denies chest pain. Denies orthopnea. Denies PND. Denies palpitations RESPIRATORY: Denies shortness of breath. GASTROINTESTINAL: Denies abdominal pain. Denies nausea or vomiting. HEMATOLOGIC: Denies bleeding disorders. GENITOURINARY: Denies any blood in urine. SKIN: Denies pruitis. Denies rash. PHYSICAL EXAM: VITAL SIGNS: Reviewed. GENERAL: Well-developed in no acute distress. HEENT: Head is normocephalic. Pupils are equal, round. Sclerae anicteric. Mucous membranes of the mouth are moist. Neck supple. No JVD or thyromegaly LUNGS: Respirations even and unlabored. Lungs essentially clear to auscultation bilaterally. HEART: Regular rate and rhythm. S1 and S2 heard. ABDOMEN: Soft. Nondistended. Nontender. EXTREMITIES: Normal range of motion. No clubbing or cyanosis. Peripheral pulses intact. No lower extremity edema NEUROLOGIC: Awake and alert. Oriented x 3. 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 However echocardiogram completed revealing ejection fraction 40 to 45%. Stress test today for c anceled. Patient will undergo cardiac catheterization today with Dr. Medeiros to evaluate for CAD due to cardiomyopathy Begin aspirin, atorvastatin, Farxiga, metoprolol, and Entresto Check lipid panel Smoking cessation recommended. Patient referred to [place] quit line upon discharge Further recommendations pending patient course Nurse practitioner note has been reviewed by physician. Signing provider agrees with the documented findings, assessment, and plan of care documented by INJECTION MOLDING MACHINE TENDER as a scribe. Past Medical History Past Medical History: GERD/Reflux Additional Past Medical History / Comment(s): reflux trouble swallowint, lower back muscle spasms History of Any Multi-Drug Resistant Organisms: None Reported Past Surgical History: No Surgical Hx Reported Past Anesthesia/Blood Transfusion Reactions: No Reported Reaction Additional Past Anesthesia/Blood Transfusion Reaction / Comment(s): no blood transfusion Past Psychological History: Anxiety Smoking Status: Current every day smoker, Vaper Past Alcohol Use History: Occasional Past Drug Use History: Marijuana Medications and Allergies Home Medications Medication Instructions Recorded Confirmed Type No Known Home Medications 08/15/24 08/15/24 History Allergies Allergy/AdvReac Type Severity Reaction Status Date / Time No Known Allergies Allergy Verified 08/15/24 08:26 Physical Exam Vitals: Vital Signs Temp Pulse Resp BP Pulse Ox 08/15/24 06:59 98.3 F 64 14 117/84 96 08/15/24 03:40 97.9 F 67 14 125/83 98 08/15/24 02:21 98.5 F 80 14 138/88 95 08/15/24 01:56 98.6 F 71 18 142/93 98 Intake and Output 08/14/24 08/15/24 08/15/24 22:59 06:59 14:59 Other: Weight 80.286 kg Results 08/15/24 01:59 08/15/24 01:59 Cardiac Enzymes 08/15/24 08/15/24 08/15/24 Range/Units 01:59 01:59 05:17 AST 27 (17-59) U/L Troponin I <0.012 <0.012 (0.000-0.034) ng/mL Coagulation 08/15/24 Range/Units 01:59 PT 11.0 (10.0-12.5) sec APTT 23.8 (22.0-30.0) sec CBC 08/15/24 Range/Units 01:59 WBC 11.2 H (3.8-10.6) k/uL RBC 4.85 (4.30-5.90) m/uL Hgb 15.2 (13.0-17.5) gm/dL Hct 45.7 (39.0-53.0) % Plt Count 303 (150-450) k/uL Comprehensive Metabolic Panel 08/15/24 Range/Units 01:59 Sodium 139 (137-145) mmol/L Potassium 3.8 (3.5-5.1) mmol/L Chloride 103 (98-107) mmol/L Carbon Dioxide 25 (22-30) mmol/L BUN 10 (9-20) mg/dL Creatinine 0.82 (0.66-1.25) mg/dL Glucose 110 H (74-99) mg/dL Calcium 9.4 (8.4-10.2) mg/dL AST 27 (17-59) U/L ALT 18 (4-49) U/L Alkaline Phosphatase 58 (38-126) U/L Total Protein 7.7 (6.3-8.2) g/dL Albumin 4.8 (3.5-5.0) g/dL Current Medications Generic Name Dose Route Start Last Admin Trade Name Freq PRN Reason Stop Dose Admin Acetaminophen 650 mg 08/15/24 06:23 Acetaminophen Tab 325 Mg Tab PO Q6HR PRN Mild Pain or Fever > 100.5 Al Hydroxide/Mg Hydroxide 15 ml 08/15/24 06:23 Mag Hydrox/Al Hydrox/Simeth 30 Ml Cup PO Q6HR PRN Indigestion Calcium Carbonate/Glycine 1,000 mg 08/15/24 06:23 Calcium Carbonate 500 Mg Chewable PO Q4HR PRN Dyspepsia Famotidine 20 mg 08/15/24 09:00 Famotidine 20 Mg Tab PO BID IBETH Ibuprofen 400 mg 08/15/24 06:23 Ibuprofen 400 Mg Tab PO Q6HR PRN Mild Pain or Fever > 100.5 Naloxone HCl 0.2 mg 08/15/24 06:23 Naloxone 0.4 Mg/Ml 1 Ml Vial IV Q2M PRN Opioid Reversal Ondansetron HCl 4 mg 08/15/24 06:23 Ondansetron 4 Mg/2 Ml Vial IVP Q8HR PRN Nausea And Vomiting Tramadol HCl 50 mg 08/15/24 06:23 Tramadol 50 Mg Tab PO Q6H PRN Moderate Pain (Scale 4 to 6) Intake and Output 08/14/24 08/15/24 08/15/24 22:59 06:59 14:59 Other: Weight 80.286 kg 08/15/24 01:59 08/15/24 01:59
[2024-08-15 17:30] LABS: Chol/HDL Ratio 7.23 Ratio; LDL Cholesterol,Calculated 138.1 mg/dL (0.0-131.0)
[2024-08-15] MEDS: SACUBITRIL/VALSARTAN 24 MG-26 MG TABLET PO SCH (20:44)
[2024-08-16] MEDS: SODIUM CHLORIDE 0.9% 1,000 ML IV SCH (01:03)
[2024-08-16 08:03] VITALS: RESP 18
[2024-08-16] MEDS: METOPROLOL SUCCINATE (ER) 25 MG TAB.ER.24H PO SCH (09:03)
[2024-08-16] MEDS: DAPAGLIFLOZIN PROPANEDIOL 10 MG TABLET PO SCH (09:03)
[2024-08-16] MEDS: ASPIRIN 81 MG PO SCH (09:03)
[2024-08-16 09:53] LABS: Basophils # (A) 0.06 X 10*3/uL (0.00-0.10); Basophils % (A) 0.7 %; Eosinophils # (A) 0.61 X 10*3/uL (0.04-0.35); Eosinophils % (A) 7.3 %; HCT 44.8 % (39.6-50.0); HGB 15.3 g/dL (13.0-17.0); Lymphocytes # (A) 2.88 X 10*3/uL (0.90-5.00); Lymphocytes % (A) 34.6 %; MCH 31.2 pg (27.0-32.0); MCHC 34.2 g/dL (32.0-37.0); MCV 91.2 FL (80.0-97.0); Mean Platelet Volume 9.9 FL (9.5-12.2); Monocytes # (A) 0.69 X 10*3/uL (0.20-1.00); Monocytes % (A) 8.3 %; NRBC Per 100 WBC 0 X 10*3/uL (0.00-0.01); Neutrophils # (A) 4.07 X 10*3/uL (1.80-7.70); Neutrophils % (A) 48.9 %; Platelet Count 302 X 10*3/uL (140-440); RBC 4.91 X 10*6/uL (4.40-5.60); RDW 12.9 % (11.5-14.5); WBC 8.33 X 10*3/uL (4.50-10.00)
[2024-08-16 10:08] LABS: Calcium 9.1 mg/dL (8.7-10.3); Carbon Dioxide 23.6 mmol/L (21.6-31.8); Chloride 108 mmol/L (96-109); Glucose 97 mg/dL (70-110); Potassium 4.7 mmol/L (3.5-5.5); Sodium 141 mmol/L (135-145)
--- NOTE | 2024-08-16 11:21 | P.PN ---
Subjective Progress Note Date: 08/16/24 This is a 39-year-old male with a past medical history significant for nicotine dependence in the form of vaping. 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 We have been asked to see the patient in consultation for chest pain. Patient examined at the bedside. Patient states yesterday he was watching TV when he began to get chest pain. He does report having some radiation of the pain into his arm at that time. He reports feeling dizzy and lightheaded. 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 He did receive nitro twice in the emergency room. He states that his pain improved after the first nitro but then he got up to walk to the bathroom and his pain returned. He received a second nitro and then his pain resolved. He denied having any further episodes of chest pain or pressure. He denies any known history of CAD. He denies a history of diabetes, hypertension, or hyperlipidemia. Patient does report that he vapes daily. He reports a family history of CAD in both his mother and his father. DIAGNOSTICS: - EKG reveals sinus mechanism with no signs of acute ischemia - Chest xray negative for acute process - Laboratory data: WBC 11.2. Hemoglobin 15.2. Platelet count 303. Sodium 139. Potassium 3.8. BUN 10. Creatinine 0.82. Magnesium 2.2. Troponin negative x 2. proBNP less than 20. - Current home cardiac medications include none -Echocardiogram obtained revealing ejection fraction 40 to 45%, mild to moderate MR, mild TR, mild LVH, no evidence of pericardial effusion 08/16/2024 Patient underwent cardiac catheterization with Dr. Medeiros yesterday that showed normal coronary arteries. He has been initiated on beta-mumtaz, Entresto and Farxiga. Renal function and electrolytes are stable. He has had no further chest discomfort. Denies any shortness of breath, dizziness or lightheadedness. He has no orthopnea or PND. Denies edema. PHYSICAL EXAM: VITAL SIGNS: Reviewed. GENERAL: Well-developed in no acute distress. HEENT: Head is normocephalic. Pupils are equal, round. Sclerae anicteric. Mucous membranes of the mouth are moist. Neck supple. No JVD or thyromegaly LUNGS: Respirations even and unlabored. Lungs essentially clear to auscultation bilaterally. HEART: Regular rate and rhythm. S1 and S2 heard. ABDOMEN: Soft. Nondistended. Nontender. EXTREMITIES: Normal range of motion. No clubbing or cyanosis. Peripheral pulses intact. No lower extremity edema. Right radial puncture site clean dry and intact with no evidence of ecchymosis or hematoma. NEUROLOGIC: Awake and alert. Oriented x 3. ASSESSMENT: New onset cardiomyopathy, 40 to 45%, nonischemic Nicotine dependence in the form of vaping Family history of CAD PLAN: From cardiology's perspective medications were reviewed and we will continue the same. Patient given a voucher from [employer] for 30-day free supply also dir ected to go to [employer] as well as [employer] for co-pay assistance if needed. Encouraged vaping cessation. Patient advised on following Mediterranean diet. He will follow-up in the office with Dr. Medeiros in about a week. He has been advised to stay off work until follow-up. From our standpo int patient may be discharged home today. SENIOR NUCLEAR MEDICINE TECHNOLOGIST note has been reviewed, I agree with a documented findings and plan of care. Patient was seen and examined. Objective - Vital Signs Vital signs: Vital Signs Temp 97.6 F 08/16/24 07:30 Pulse 65 08/16/24 07:30 Resp 18 08/16/24 07:30 BP 101/60 08/16/24 07:30 Pulse Ox 97 08/16/24 07:30 FiO2 Intake & Output 08/15/24 08/16/24 08/16/24 18:59 06:59 18:59 Intake Total 548 Balance 548 Weight 80.286 kg Intake: IV 430 Oral 118 Other: Voiding Method Toilet # Voids 1 4 - Labs CBC & Chem 7: 08/16/24 03:56 08/16/24 03:56 Labs: Abnormal Lab Results - Last 24 Hours (Table) 08/15/24 08/16/24 Range/Units 01:59 03:56 Eosinophils # 0.61 H (0.04-0.35) X 10*3/uL Triglycerides 335.00 H (0.00-149.00) mg/dL Cholesterol 238.00 H (0.00-200.00) mg/dL LDL Cholesterol, Calc 138.1 H (0.0-131.0) mg/dL VLDL Cholesterol, Calc 67.00 H (5.00-40.00) mg/dL HDL Cholesterol 32.90 L (40.00-60.00) mg/dL
--- NOTE | 2024-08-16 14:08 | P.DS ---
Providers Date of admission: 08/15/24 06:24 Expected date of discharge: 08/16/24 Attending physician: Jacy Mitchell Consults: 08/15/24 06:23 Consult Physician Routine Consulting Provider: Isidro Betancur Consult Reason/Comments: Chest pain Do you want consulting provider notified?: Yes, Notify in am Primary care physician: Reyna [facility] [[email or web address] [facility] Course: Per medical H&P, "Patient is a 39-year-old male with GERD presented earlier today to the ED for left-sided chest tightness that started yesterday evening. Patient was seen at bedside. He reported that he was laying down watching TV last night when he started feeling a chest tightness sensation. He has never had anything like this before. He reported a substernal, nonradiating, intermittent chest pain with intensity of 5 out of 10. Each episode lasted few minutes. When patient presented to the ED he was given nitroglycerin which did help relieve his pain. Patient does report a family history significant for sudden cardiac , atrial fibrillation, and premature ventricular contractions. Patient also endorsed shakiness and dizziness. Denies syncope, loss of consciousness, passing out. Patient also denies fever, chills, shortness of breath, nausea, vomiting, belly pain, diarrhea/constipation, tingling/numbness in upper and lower extremity. ED documentation reviewed. In the ED patient was treated with aspirin 324 mg x 1, nitroglycerin 0.4 mg x 2, a bolus of normal saline, Tylenol 1000 mg x 1, Toradol 15 mg IV x 1 Vitals on admission temperature 98.3, pulse rate 64, respiratory rate 14, BP 117/84, O2 sat 96% on room air EKG independently interpreted as sinus rhythm, with ventricular rate of 73 bpm, QTc interval 373 ms CXR shows no acute pulmonary process. Labs on admission show WBC 11.3, hemoglobin 15.2, hematocrit 45.7, platelets 303, PT 11, PTT 23.8, INR 1.0, sodium 139, potassium 3.8, chloride 103, carbon dioxide 25, BUN 10, creatinine 0.82, glucose 110, troponin less than 0.012 x 2, BNP less than 20" Hospital course: Patient is a 39-year-old male with GERD presented earlier 08/15/2024 to the ED for left-sided chest tightness that started on 08/14/2024 evening. Patient was seen at bedside. He reported he was laying down watching TV last night when he started feeling a chest tightness sensation. He has never had anything like this before. Reported a substernal, nonradiating, intermittent chest pain with intensity of 5 out of 10. Each episode lasted a few minutes. Patient was seen by cardiology. Echocardiogram was obtained which revealed an impaired left ventricular function with ejection fraction between 40 to 45%. Patient subsequently underwent a cardiac catheterization showed normal coronary angiogram and normal left-sided filling pressure. Cardiology recommended medical treatment and maximize medical treatment for cardiomyopathy. Patient is encouraged to follow-up with mgmt consultant Dr. Medeiros in the office in about a week. Entresto 24 mg - 26 mg 1 tablet twice daily, metoprolol succinate 25 mg daily, Farxiga 10 mg daily, Lipitor 40 mg at bedtime, aspirin 81 mg daily were added to patient's home medication list. Patient was seen on 08/16/2024 with no acute complaints. Patient denied any chest pain since being admitted to the hospital. Patient is stable to be discharged back home. Discharge physical exam findings GENERAL: This is a 39-year-old in no apparent distress at the time of examination. Pleasant and cooperative. HEENT: Head is atraumatic, normocephalic. Pupils are equal, round, and reactive to light. Sclerae anicteric. Conjunctivae are clear. Mucus membranes of the mouth are moist. Neck is supple. RESPIRATORY: Clear to auscultation. No wheezes, rales, or rhonchi. No use of accessory muscles. Patient maintaining oxygen saturation greater than 92%. No chest wall tenderness is noted on palpation or with deep breathing. CARDIOVASCULAR: Regular rate and rhythm. S1 and S2 noted. No systolic or diastolic murmur auscultated. No JVD noted. No S3 or S4 noted. GASTROINTESTINAL: No distention noted. Abdomen soft and round. Normal active bowel sounds auscultated x 4 quadrants. No pain or tenderness noted upon palpation. INTEGUMENTARY: No cyanosis. No jaundice. No rashes noted. No cellulitis noted. EXTREMITIES: 2+ peripheral pulses. No evidence of peripheral edema. No calf tenderness noted. NEUROLOGIC: Cranial nerves II-XII intact. PSYCHIATRIC: Awake, alert. Appropriate affect. Intact judgement and insight. Assessment: Chest pain with atypical features, ACS rule out Pertinent Studies: Echocardiogram showed impaired left ventricular function with ejection fraction between 40 to 45%. Mild LVH was noted. Heart catheterization showed normal coronary angiogram and normal left-sided filling pressure. Patient Condition at Discharge: Stable Plan - Discharge Summary New Discharge Prescriptions: New Sacubitril/Valsartan [Entresto 24 mg-26 mg Tablet] 1 each PO BID tab Atorvastatin [Lipitor] 40 mg PO HS tab Metoprolol Succinate (ER) [Toprol XL] 25 mg PO DAILY tab Aspirin 81 mg PO DAILY tab Dapagliflozin Propanediol [Farxiga] 10 mg PO DAILY tab Discharge Medication List Aspirin 81 mg PO DAILY tab 08/16/24 [Rx] Atorvastatin [Lipitor] 40 mg PO HS tab 08/16/24 [Rx] Dapagliflozin Propanediol [Farxiga] 10 mg PO DAILY tab 08/16/24 [Rx] Metoprolol Succinate (ER) [Toprol XL] 25 mg PO DAILY tab 08/16/24 [Rx] Sacubitril/Valsartan [Entresto 24 mg-26 mg Tablet] 1 each PO BID tab 08/16/24 [Rx] Follow up Appointment(s)/Referral(s): Reyna Parsons MD [Primary Care Provider] - 1-2 days Daniel Medeiros MD [STAFF PHYSICIAN] - 1 Week Discharge Disposition: HOME SELF-CARE
[2024-08-16 15:02] VITALS: BP 127/74; PULSE 69; TEMP 98.3
[2024-08-16] MEDS ORDERED: ATORVASTATIN 40 MG TAB PO SCH (21:00)
== END 2024-08-16 15:50 | disposition home or self-care (01) ==
LOC: EC 01:53 → 1SOBS 06:24 → 6NMEDSUR 14:50
PROVIDERS: ADMIT Hospitalist; ATTEND Hospitalist
DX: R07.89 Other chest pain (principal); I42.8 Other cardiomyopathies; D72.829 Elevated white blood cell count, unspecified; R73.9 Hyperglycemia, unspecified; K21.9 Gastro-esophageal reflux disease without esophagitis; F41.9 Anxiety disorder, unspecified; F17.290 Nicotine dependence, other tobacco product, uncomplicated; Z79.82 Long term (current) use of aspirin; Z79.899 Other long term (current) drug therapy; Z82.49 Family history of ischemic heart disease and other diseases of the circulatory system
CPT/HCPCS: 96361; 96374; 99285; 36415; 93005; 93306; 93458; 83880; 80061; 80053; 80048; 83735; 84484; 85025 ×2; 85610; 85730; 83036; 71046; G0378 ×2; C1769; C1894; J2250; J1644 ×3; J2003; J1885; J1171; Q9967